=== PATIENT | female | born 1990 | race Caucasian/White ===

== ENCOUNTER 2019-11-24 12:45 | Emergency (ER) | payer OTHER, SELFPAY ==
--- NOTE | 2019-11-24 13:40 | RAD ---
RIGHT ANKLE THREE VIEW: 11/24/19 HISTORY: Injury. COMPARISON: None. FINDINGS: No acute displaced fracture or malalignment. Small ankle joint effusion. IMPRESSION: No acute osseous abnormality. Evidence for lateral ankle sprain. POS: HOME
== END 2019-11-24 13:13 | disposition home or self-care (01) ==
LOC: BURERS 12:45
DX: S93.401A Sprain of unspecified ligament of right ankle, initial encounter (principal); F17.210 Nicotine dependence, cigarettes, uncomplicated; F41.9 Anxiety disorder, unspecified; W19.XXXA Unspecified fall, initial encounter

== ENCOUNTER 2020-03-25 20:43 | Emergency (ER) | payer SELFPAY ==
[2020-03-25] MEDS ORDERED: Bacitracin 1 PK ONE (21:10)
[2020-03-25] MEDS ORDERED: Amoxicillin/Potassium Clav 875 MG TAB PO SCH (21:15)
== END 2020-03-25 21:30 | disposition home or self-care (01) ==
LOC: BURERS 20:43
DX: S01.25XA Open bite of nose, initial encounter (principal); F41.9 Anxiety disorder, unspecified; F17.210 Nicotine dependence, cigarettes, uncomplicated; W54.0XXA Bitten by dog, initial encounter
CPT/HCPCS: 99283